=== PATIENT | male | born 1965 | race African-American/Black ===

== ENCOUNTER 2021-07-16 17:50 | Inpatient (IN) | payer BC ==
[~2021-07-16] VITALS: Ht 170.2 cm; Wt 118.3 kg
[2021-07-16 00:30] VITALS: BP 156/91
[2021-07-16] MEDS ORDERED: IV NORMAL SALINE 1000ML BAG 1,000 ML IV ONE (19:00)
[2021-07-16] MEDS ORDERED: DEXAMETHASONE SOD PHOS 4 MG/ML VIAL IVP ONE (19:00)
--- NOTE | 2021-07-16 19:14 | PHYS DOC ---
Past Medical History Past Medical History: Diabetes-Type II, Hypertension Additional Past Medical Histor: HERNIA Past Surgical History: No Surgical History Smoking Status: Never Smoker Alcohol Use: Occasionally Drug Use: None General Adult EDM: Chief Complaint: SHORTNESS OF BREATH HPI: HPI: Patient is a 55-year-old male with past medical history of hypertension and diabetes presenting for shortness of breath, cough, and fever for about a week. He reports he initially felt that he had a head cold and some fatigue that worsened. He now reports productive cough of green/brown/reddish tinted sputum that is worse in the morning and at night. He also reports shortness of breath that is worse when he is up moving around. He has been taking Tylenol for the fevers for the past week with some relief and in his symptoms. He saw his PCP yesterday and they provided him with a Covid test for which he has not gotten the results yet. He denies chest pain, nausea/vomiting, diarrhea, or dysuria. He reports he has not been vaccinated for COVID and has had no known exposures that he knows of. He denies history of blood clot, leg swelling, recent surgery/hospitalization, history of malignancy, or use of hormones. Review of Systems: Review of Systems: Constitutional: Reports fevers and chills Eyes: Denies redness or eye pain HENT: Denies nasal congestion or sore throat Respiratory: Reports cough and shortness of breath Cardiovascular: Denies chest pain or palpitations GI: Denies abdominal pain, nausea, or vomiting : Denies dysuria or hematuria Musculoskeletal: Denies back pain or joint pain Integument: Denies rash or skin lesions Neurologic: Denies focal weakness or sensory changes; reports headache Complete systems were reviewed and found to be within normal limits, except as documented in this note. Heart Score: C/O Chest Pain: N/A Current Medications: Current Medications Medications (Trade) Dose Ordered Sig/Jerome Start Time Stop Time Status Last Admin Dose Admin Dexamethasone Sodium Phosphate (Decadron) 10 mg 1X ONCE 07/16/21 19:00 07/16/21 19:01 DC Sodium Chloride 1,000 ml @ 1,000 mls/hr 1X ONCE 07/16/21 19:00 07/16/21 19:59 Allergies: Allergies: Allergies Coded Allergies Type Severity Reaction Last Updated Verified No Known Drug Allergies 11/15/15 No Physical Exam: PE: Constitutional: Well developed, well nourished, no acute distress HENT: Normocephalic, atraumatic Eyes: Conjunctiva normal, no discharge Neck: Normal range of motion, no tenderness, supple Lungs & Thorax: No respiratory distress, equal chest rise and fall, diminished breath sounds throughout Abdomen: Soft, no tenderness Skin: Warm, dry, no rash Back: No tenderness, no CVA tenderness Extremities: No tenderness, ROM intact, no LE edema Neurologic: Alert and oriented X 3, no focal deficits noted Psychologic: Affect normal, judgment normal EKG: EKG: @1918, sinus tachycardia at [address] segment changes, QRS 82 ms, QT/QTc 318/430 ms Radiology/Procedures: Radiology/Procedures: PROCEDURE: CT ANGIOGRAPHY CHEST EXAMINATION: CTA Chest With IV contrast INDICATION:55 years, Male, shortness of breath, Covid 19 positive, evaluate for pulmonary embolism. COMPARISON: None. TECHNIQUE: Spiral CTA was obtained from the jugular notch through the posterior costophrenic recess. 3-D MIPS, sagittal and coronal reformats were obtained. Exposure: One or more of the following individualized dose reduction techniques were utilized for this examination: 1. Automated exposure control 2. Adjustment of the mA and/or kV according to patient size 3. Use of iterative reconstruction technique. FINDINGS: LUNGS/PLEURA: Central airways are patent. Multifocal bilateral consolidative and groundglass opacities. No pleural effusion or pneumothorax. No suspicious pulmonary nodule. MEDIASTINUM: Prominent mediastinal lymph nodes, likely reactive. The thoracic aorta and pulmonary arteries are normal in caliber. Evaluation for pulmonary embolism is limited due to contrast bolus timing. No evidence of pulmonary embolism to the proximal segmental level. The heart is normal in size. No pericardial effusion. No detectable calcified coronary atherosclerosis. The visualized thyroid and the esophagus are unremarkable. AXILLA/SOFT TISSUE: No supraclavicular or axillary adenopathy. Regional soft tissues are within normal limits. UPPER ABDOMEN: Calcified granuloma in the right hepatic lobe. Small hiatal hernia. BONES: No evidence of acute fractures or aggressive osseous lesions. Multilevel degenerative changes in the thoracic spine. IMPRESSION: 1. Evaluation for pulmonary embolism is limited due to contrast bolus timing. No evidence of pulmonary embolism to the proximal segmental level. 2. Multifocal bilateral consolidative and groundglass opacities, consistent with patient's history of COVID-19 pneumonia. Electronically signed by: Becca Kapadia MD (07/16/2021 10:38 PM) [facility] Course & Med Decision Making: Course & Med Decision Making Pertinent Labs and Imaging studies reviewed. (See chart for details) Patient is a 55-year-old male with past medical history of diabetes and hypertension presenting for shortness of breath, cough, and fever. Patient initially tachycardic and slightly hypoxic at 89% in triage, placed on 2 L O2 with improvement in saturation to 97%. 1 L normal saline given along with IV Dex. EKG showed sinus tachycardia without acute ST segment changes suggestive of ischemia. Rapid Covid positive. Labs ordered and posted to chart . CBC and CMP unremarkable. Troponin negative. CT chest did not show evidence of PE, demonstrated b/l groundglass opacities consistent with COVID pneumonia. Patient requiring admission for further evaluation and treatment. Discussed with Dr. Swan (PCP) who is in agreement with admission. Discussed findings and plan with patient, who acknowledges understanding and agreement. Dr. Swan requested remdesivir be started and the dexamethasone to continue. COVID-19 CRITERIA: The patient was evaluated during the global COVID-19 pandemic, and that diagnosis was suspected/considered upon their initial presentation. Their evaluation, treatment and testing was consistent with current guidelines for patients who present with complaints or symptoms that may be related to COVID-19. Dragon Disclaimer: Dragon Disclaimer: This electronic medical record was generated, in whole or in part, using a voice recognition dictation system. Departure Departure Impression: Primary Impression: Respiratory failure Qualified Codes: J96.01 - Acute respiratory failure with hypoxia Additional Impressions: COVID-19 Hypoxia Disposition: 09 ADMITTED INPATIENT Admitting Physician: Bianca Swan Condition: STABLE Referrals: BIANCA SWAN MD (PCP) COVID-19 Assessment: COVID-19 Patient Risks: Age 65 or older: No Sign of co-morbidity: Yes Exp to person + for COVID: No Exp to PUI: No Travel from affected area: No Lower respiratory symptoms: Yes Fever: Yes Other: Yes PPE Use: Full PPE with N95 mask or PAPR: Yes Critical Care Time Critical care time was 30 minutes which includes time at bedside, spent in discussion of patient's care with specialists and/or family members, with interpretation of laboratory and/or radiological studies and is exclusive of procedures. ARIANNA ARRIAGA DO Jul 16, 2021 19:14
[2021-07-16 19:48] LABS: BASO % 1 % (0-3); EOS % 0 % (0-3); HEMATOCRIT 41.1 % (39.0-53.0); HEMOGLOBIN 13.7 g/dL (13.0-17.5); LYMPH # 0.7 x10^3/uL (1.0-4.8); LYMPH % 11 % (24-48); MEAN CORPUSCULAR HEMOGLOBIN 30 pg (25-35); MEAN CORPUSCULAR HGB CONC 33 g/dL (31-37); MEAN CORPUSCULAR VOLUME 89 fL (79-100); MONO # 0.4 x10^3/uL (0.0-1.1); MONO % 7 % (0-9); NEUT # 4.9 x10^3/uL (1.8-7.7); NEUT % 81 % (31-73); PLATELET COUNT 209 x10^3/uL (140-400); RED BLOOD COUNT 4.61 x10^6/uL (4.30-5.70); RED CELL DISTRIBUTION WIDTH 14.2 % (11.5-14.5); WHITE BLOOD COUNT 6.1 x10^3/uL (4.0-11.0)
[2021-07-16 19:58] LABS: PROTHROMBIN TIME PATIENT 13.4 SEC (11.7-14.0)
[2021-07-16 19:59] LABS: CALCIUM 8.7 mg/dL (8.5-10.1); GFR 94.2
[2021-07-16 20:06] LABS: ALBUMIN 3.2 g/dL (3.4-5.0); ALBUMIN/GLOBULIN RATIO 0.7 (1.0-1.7); MAGNESIUM 2.1 mg/dL (1.8-2.4); TOTAL BILIRUBIN 0.7 mg/dL (0.2-1.0); TOTAL PROTEIN 7.9 g/dL (6.4-8.2)
[2021-07-16 20:23] LABS: CREATINE KINASE 160 U/L (39-308)
[2021-07-16] MEDS ORDERED: CONTRAST GIVEN. MC PRN (20:45)
[2021-07-16] MEDS ORDERED: IOHEXOL 350 MG/ML 100 ML VIAL. IV ONE (20:45)
[2021-07-16] MEDS ORDERED: ACETAMINOPHEN 500 MG TABLET PO ONE (21:30)
[2021-07-16] MEDS ORDERED: AZITHRMYCN 500MG IVPB FOR OMNI 250 ML IV ONE (22:00)
[2021-07-16] MEDS ORDERED: ACETAMINOPHEN 325 MG TABLET. PO PRN (22:00)
[2021-07-16] MEDS ORDERED: cefTRIAXone IV Push 1 GM VIAL. IVP ONE (22:00)
[2021-07-16] MEDS ORDERED: ONDANSETRON PF 4 MG/2 ML VIAL. IVP PRN (22:00)
[2021-07-16] MEDS ORDERED: DEXTROSE 50% 25 GM / 50ML DISP.SYRIN. IV PRN (22:00)
--- NOTE | 2021-07-16 22:41 | RAD ---
EXAMINATION: CTA Chest With IV contrast INDICATION:55 years, Male, shortness of breath, Covid 19 positive, evaluate for pulmonary embolism. COMPARISON: None. TECHNIQUE: Spiral CTA was obtained from the jugular notch through the posterior costophrenic recess. 3-D MIPS, sagittal and coronal reformats were obtained. Exposure: One or more of the following individualized dose reduction techniques were utilized for thi s examination: 1. Automated exposure control 2. Adjustment of the mA and/or kV according to patient size 3. Use of iterative reconstruction technique. FINDINGS: LUNGS/PLEURA: Central airways are patent. Multifocal bilateral consolidative and groundglass opacitie s. No pleural effusion or pneumothorax. No suspicious pulmonary nodule. MEDIASTINUM: Prominent mediastinal lymph nodes, likely reactive. The thoracic aorta and pulmonary art eries are normal in caliber. Evaluation for pulmonary embolism is limited due to contrast bolus timin g. No evidence of pulmonary embolism to the proximal segmental level. The heart is normal in size. No pericardial effusion. No detectable calcified coronary atherosclerosis. The visualized thyroid and t he esophagus are unremarkable. AXILLA/SOFT TISSUE: No supraclavicular or axillary adenopathy. Regional soft tissues are within tsering l limits. UPPER ABDOMEN: Calcified granuloma in the right hepatic lobe. Small hiatal hernia. BONES: No evidence of acute fractures or aggressive osseous lesions. Multilevel degenerative changes in the thoracic spine. IMPRESSION: 1. Evaluation for pulmonary embolism is limited due to contrast bolus timing. No evidence of pulmona ry embolism to the proximal segmental level. 2. Multifocal bilateral consolidative and groundglass opacities, consistent with patient's history o f COVID-19 pneumonia. Electronically signed by: Becca Kapadia MD (07/16/2021 10:38 PM) [facility]
[2021-07-16 22:56] LABS: BILIRUBIN,URINE SMALL (NEG); CLARITY,URINE CLEAR; COLOR,URINE AMBER; NITRITE,URINE NEGATIVE (NEG); PROTEIN,URINE 100 mg/dL (NEG-TRACE)
[2021-07-16] MEDS ORDERED: REMDESIVIR LOAD in IV NORMAL SALINE 250ML TV IV ONE (23:00)
[2021-07-16 23:04] LABS: BACTERIA,URINE 0 /HPF (0-FEW); RBC,URINE 0 /HPF (0-2); WBC,URINE OCC /HPF (0-4)
--- NOTE | 2021-07-17 01:44 | EKG ---
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
[2021-07-17 03:44] VITALS: BP 131/75
[2021-07-17] MEDS ORDERED: METF-658 PO (05:40)
[2021-07-17] MEDS ORDERED: AMLO-186 PO (05:40)
[2021-07-17] MEDS ORDERED: ATOR80TA72 PO (05:40)
[2021-07-17] MEDS ORDERED: LISI10TA16 PO (05:40)
[2021-07-17 07:00] VITALS: BP 151/89
[2021-07-17] MEDS: INSULIN LISPRO 300 UNITS/3 ML VIAL. SQ SCH ×3 (08:00→17:16)
[2021-07-17] MEDS ORDERED: FLU VACC QUAD 21-22 (6MOS+) PF 0.5 ML SYRINGE. VAX IM ONE (09:00)
[2021-07-17] MEDS: DEXAMETHASONE SOD PHOS 4 MG/ML VIAL IVP SCH (09:28)
[2021-07-17 11:00] VITALS: BP 160/91
--- NOTE | 2021-07-17 12:06 | PDOC ---
Provider Note Date of Service: DATE: 07/17/21 TIME: 12:06 Provider Note Pt seen.H&P dictated.#[id number]. Justifications for Admission Other Justification CATARINO SEGOVIA MD Jul 17, 2021 12:06
[2021-07-17] MEDS: ENOXAPARIN 40 MG/0.4 ML SYRINGE. SQ SCH (13:46)
--- NOTE | 2021-07-17 14:02 | HP ---
DATE OF SERVICE: 07/17/2021 ADMIT DATE: 07/16/2021 REASON FOR ADMISSION TO THE HOSPITAL: COVID pneumonia. HISTORY OF PRESENT ILLNESS: The patient is a 55-year-old male with history of obesity, diabetes, hypertension, and hyperlipidemia. He is not vaccinated. 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 The patient has been sick for last 4-5 days, was seen in the office a couple of days ago. COVID test was done, is still pending. He was more short of breath, came to the Emergency Room and requiring 2 liters of oxygen. A CT of the chest shows no pulmonary embolism, but bilateral ground glass opacities. The patient's white count was normal, had a fever of 103, was given broad-spectrum antibiotic, Zithromax and Rocephin, and started on dexamethasone and remdesivir. PAST MEDICAL HISTORY: As mentioned has a history of diabetes, hypertension, hyperlipidemia, obesity. PAST SURGICAL HISTORY: Denies any major surgeries. ALLERGIES: No known allergies. MEDICATIONS AT HOME: The patient is on amlodipine 5 mg daily, lisinopril 10 mg daily, metformin 500 mg daily, atorvastatin 80 mg daily. PERSONAL HISTORY: Occasional smoker. Denies alcohol, denies any street drugs. FAMILY HISTORY: Positive for diabetes, hypertension, heart disease. REVIEW OF SYSTEMS: Complains of cough, fever, shortness of breath. Rest of the 14-systems reviewed and negative. PHYSICAL EXAMINATION: GENERAL: The patient is not in any distress, comfortable. VITAL SIGNS: Temperature at the time of admission was 98, went up to 103, pulse 90, respirations 20. He is on 2 liters, 98% saturation. HEENT: Head is atraumatic. Pupils equal. Oral cavity, congestion posterior pharynx. NECK: Supple. Thyroid not enlarged. JVD not elevated. CHEST: Symmetrical. CARDIOVASCULAR: S1, S2. LUNGS: Crackles at the bases. ABDOMEN: Soft, obese. No mass palpable. EXTERNAL GENITALIA: No [place]. RECTUM: Deferred. EXTREMITIES: No calf tenderness, no edema. NEUROLOGIC: Cranial nerves intact. Power 5/5 in all extremities. LABORATORY DATA: Shows a white count of 6, hemoglobin 13, platelets 209. INR 1.0. Electrolytes show sodium 141, potassium 4.0, chloride 103, bicarbonate 29, BUN 10, creatinine 1.0, glucose 108. LFTs were normal. Urine was negative. Serology: COVID rapid test was positive. CT chest shows no PE, but shows bilateral ground glass opacities at the bases. EKG done, report is pending. FINAL IMPRESSION: 1. COVID pneumonia. 2. Slight hypoxia, on 2 liters oxygen. 3. Diabetes. 4. Hypertension. 5. Hyperlipidemia. 6. Obesity. PLAN: At this time, the patient was started on dexamethasone, remdesivir, oxygen and DVT prophylaxis with Lovenox. The patient was given one dose of Zithromax and Rocephin, but mostly looks like a fever secondary to COVID pneumonia. Continue the present treatment. Continue 5 days of remdesivir and dexamethasone. CHERI/LUCIA DR: Pavel TID: [id number]
[2021-07-17 15:00] VITALS: BP 159/81
[2021-07-17 19:00] VITALS: BP 153/88
[2021-07-17] MEDS ORDERED: metFORMIN XR 500 MG TAB.ER.24H PO SCH (21:00)
[2021-07-17] MEDS: ATORVASTATIN CALCIUM 40 MG TABLET. PO SCH (21:43)
[2021-07-17] MEDS: REMDESIVIR 100mg in NORMAL SALINE 250ML X 4 DAYS IV SCH (21:43)
[2021-07-17] MEDS: LISINOPRIL 10 MG TABLET PO SCH (21:44)
[2021-07-17 23:00] VITALS: BP 150/88
[2021-07-18 03:00] VITALS: BP 136/67
[2021-07-18 07:00] VITALS: BP 135/83
[2021-07-18] MEDS: INSULIN LISPRO 300 UNITS/3 ML VIAL. SQ SCH ×3 (08:00→17:23)
--- NOTE | 2021-07-18 09:47 | PDOC ---
PROGRESS NOTES Date of Service: DATE: 07/18/21 TIME: 09:44 Subjective Subjective feels good Objective Objective Vital Signs Date Time Temp Pulse Resp B/P (MAP) Pulse Ox O2 Delivery O2 Flow Rate FiO2 07/18/21 07:00 98.1 100 24 135/83 (100) 93 Nasal Cannula 3.5 98.1 Intake and Output 07/18/21 07:00 Intake Total 2000 ml Output Total 1200 ml Balance 800 ml Intake Oral 2000 ml Output Urine Total 1200 ml Physical Exam Abdomen: Soft Heart: Regular rate, Normal S1, Normal S2 Extremities: No clubbing General: Alert HEENT: Atraumatic Lungs: Clear to auscultation MUSCULOSKELETAL: No deformity Neck: No JVD Neuro: Normal speech Psych/Mental Status: Mental status NL Skin: No breakdown Diagnosis Problem List Problems Medical Problems: (1) COVID-19 Status: Acute (2) Hypoxia Status: Acute (3) Respiratory failure Status: Acute Assessment Assessment Problems Medical Problems: (1) COVID-19 Status: Acute (2) Hypoxia Status: Acute (3) Respiratory failure Status: Acute FINAL IMPRESSION: 1. COVID pneumonia. 2. Mild hypoxia, on oxygen. 3. Diabetes. 4. Hypertension. 5. Hyperlipidemia. 6. Obesity. PLAN: had to inc oxygen to 4 L from 2L. labs good BS good Day#3 of remdisivr+dexamethasone. DVT prevention with Lovenox. At this time, the patient was started on dexamethasone, remdesivir, oxygen and DVT prophylaxis with Lovenox. The patient was given one dose of Zithromax and Rocephin, but mostly looks like a fever secondary to COVID pneumonia. Continue the present treatment. Continue 5 days of remdesivir and dexamethasone. Plan Plan of Care Problems Medical Problems: (1) COVID-19 Status: Acute (2) Hypoxia Status: Acute (3) Respiratory failure Status: Acute Comment Review of Relevant I have reviewed the following items avila (where applicable) has been applied. Labs Laboratory Tests Test 07/17/21 11:40 07/17/21 16:30 07/18/21 07:53 Glucose (Fingerstick) 166 mg/dL (70-99) 188 mg/dL (70-99) 122 mg/dL (70-99) Microbiology 07/16/21 Blood Culture - Preliminary, Resulted NO GROWTH AFTER 1 DAY Medications Current Medications Amlodipine Besylate (Norvasc) 5 mg HS PO Last administered on 07/17/21at 21:44; Start 07/17/21 at 21:00 Atorvastatin Calcium (Lipitor) 80 mg QHS PO Last administered on 07/17/21at 21:43; Start 07/17/21 at 21:00 Enoxaparin Sodium (Lovenox 40mg Syringe) 40 mg Q24H SQ Last administered on 07/17/21at 13:46; Start 07/17/21 at 12:00 Lisinopril (Prinivil) 10 mg HS PO Last administered on 07/17/21at 21:44; Start 07/17/21 at 21:00 Metformin HCl (Glucophage Xr) 500 mg HS PO ; Start 07/17/21 at 21:00; Status Cancel Metformin HCl (Glucophage Xr) 500 mg HS PO ; Start 07/19/21 at 21:00 Remdesivir 100 mg/ Sodium Chloride 230 ml @ 460 mls/hr Q24H IV Last administered on 07/17/21at 21:43; Start 07/17/21 at 22:00; Stop 07/20/21 at 22:29 Vitals/I & O Vital Sign - Last 24 Hours 07/17/21 07/17/21 07/17/21 07/17/21 11:00 15:00 19:00 20:00 Temp 98.3 98.0 98.1 98.3 98.0 98.1 Pulse 83 83 80 Resp 20 20 20 B/P (MAP) 160/91 (114) 159/81 (107) 153/88 (109) Pulse Ox 95 95 94 O2 Delivery Nasal Cannula Nasal Cannula Nasal Cannula Nasal Cannula O2 Flow Rate 2.0 2.0 2.0 2.0 07/17/21 07/17/21 07/17/21 07/18/21 21:44 21:44 23:00 03:00 Temp 97.8 98.0 97.8 98.0 Pulse 83 83 73 79 Resp 20 20 B/P (MAP) 159/81 159/81 150/88 (108) 136/67 (90) Pulse Ox 95 92 O2 Delivery Nasal Cannula Nasal Cannula O2 Flow Rate 2.0 2.0 07/18/21 07:00 Temp 98.1 98.1 Pulse 100 Resp 24 B/P (MAP) 135/83 (100) Pulse Ox 93 O2 Delivery Nasal Cannula O2 Flow Rate 3.5 Intake and Output 07/17/21 07/17/21 07/18/21 15:00 23:00 07:00 Intake Total 240 ml 540 ml 1220 ml Output Total 400 ml 800 ml Balance -160 ml -260 ml 1220 ml Justifications for Admission Other Justification CATARINO SEGOVIA MD Jul 18, 2021 09:47
[2021-07-18] MEDS: DEXAMETHASONE SOD PHOS 4 MG/ML VIAL IVP SCH (09:52)
[2021-07-18 11:00] VITALS: BP 148/86
[2021-07-18] MEDS: ENOXAPARIN 40 MG/0.4 ML SYRINGE. SQ SCH (12:23)
[2021-07-18 14:56] VITALS: BP 130/80
[2021-07-18 19:00] VITALS: BP 153/89
[2021-07-18] MEDS: ATORVASTATIN CALCIUM 40 MG TABLET. PO SCH (22:01)
[2021-07-18] MEDS: REMDESIVIR 100mg in NORMAL SALINE 250ML X 4 DAYS IV SCH (22:01)
[2021-07-18] MEDS: LISINOPRIL 10 MG TABLET PO SCH (22:02)
[2021-07-18 23:00] VITALS: BP 164/87
[2021-07-19 03:00] VITALS: BP 150/99
[2021-07-19 06:09] LABS: CALCIUM 8.5 mg/dL (8.5-10.1); GFR 94.2; POTASSIUM 3.8 mmol/L (3.5-5.1)
[2021-07-19 06:40] LABS: BASO % 0 % (0-3); EOS % 0 % (0-3); HEMOGLOBIN 12.3 g/dL (13.0-17.5); LYMPH # 0.9 x10^3/uL (1.0-4.8); LYMPH % 11 % (24-48); MEAN CORPUSCULAR HEMOGLOBIN 29 pg (25-35); MEAN CORPUSCULAR HGB CONC 32 g/dL (31-37); MEAN CORPUSCULAR VOLUME 90 fL (79-100); MONO # 0.8 x10^3/uL (0.0-1.1); MONO % 10 % (0-9); NEUT # 6.2 x10^3/uL (1.8-7.7); NEUT % 79 % (31-73); PLATELET COUNT 275 x10^3/uL (140-400); RED BLOOD COUNT 4.24 x10^6/uL (4.30-5.70); RED CELL DISTRIBUTION WIDTH 14.6 % (11.5-14.5); WHITE BLOOD COUNT 7.9 x10^3/uL (4.0-11.0)
[2021-07-19 07:00] VITALS: BP 153/84
[2021-07-19] MEDS: INSULIN LISPRO 300 UNITS/3 ML VIAL. SQ SCH ×3 (08:00→17:00)
--- NOTE | 2021-07-19 08:58 | PDOC ---
PROGRESS NOTES Date of Service: DATE: 07/19/21 TIME: 08:57 Subjective Subjective feels better Objective Objective Vital Signs Date Time Temp Pulse Resp B/P (MAP) Pulse Ox O2 Delivery O2 Flow Rate FiO2 07/19/21 03:00 96.6 64 20 150/99 (116) 98 Room Air 96.6 07/18/21 23:00 2.0 Intake and Output 07/19/21 07:00 Intake Total 1220 ml Output Total 1650 ml Balance -430 ml Intake Oral 1220 ml Output Urine Total 1650 ml Physical Exam Abdomen: Soft Heart: Regular rate, Normal S1, Normal S2 Extremities: No clubbing General: Alert HEENT: Atraumatic Lungs: Clear to auscultation MUSCULOSKELETAL: No deformity Neck: No JVD Neuro: Normal speech Psych/Mental Status: Mental status NL Skin: No breakdown Diagnosis Problem List Problems Medical Problems: (1) COVID-19 Status: Acute (2) Hypoxia Status: Acute (3) Respiratory failure Status: Acute Assessment Assessment Problems Medical Problems: (1) COVID-19 Status: Acute (2) Hypoxia Status: Acute (3) Respiratory failure Status: Acute FINAL IMPRESSION: 1. COVID pneumonia. 2. Mild hypoxia, on oxygen. 3. Diabetes. 4. Hypertension. 5. Hyperlipidemia. 6. Obesity. PLAN:plans to d/c home tomorrow with home oxygen had to inc oxygen to 4 L from 2L. labs good BS good Day#4 of remdisivr+dexamethasone. DVT prevention with Lovenox. CT chest -ve for PE. At this time, the patient was started on dexamethasone, remdesivir, oxygen and DVT prophylaxis with Lovenox. The patient was given one dose of Zithromax and Rocephin, but mostly looks like a fever secondary to COVID pneumonia. Continue the present treatment. Continue 5 days of remdesivir and dexamethasone. Plan Plan of Care Problems Medical Problems: (1) COVID-19 Status: Acute (2) Hypoxia Status: Acute (3) Respiratory failure Status: Acute Comment Review of Relevant I have reviewed the following items avila (where applicable) has been applied. Labs Laboratory Tests Test 07/18/21 12:14 07/18/21 17:05 07/18/21 21:05 07/19/21 05:00 Glucose (Fingerstick) 132 mg/dL (70-99) 163 mg/dL (70-99) 168 mg/dL (70-99) White Blood Count 7.9 x10^3/uL (4.0-11.0) Red Blood Count 4.24 x10^6/uL (4.30-5.70) Hemoglobin 12.3 g/dL (13.0-17.5) Hematocrit 38.0 % (39.0-53.0) Mean Corpuscular Volume 90 fL (79-100) Mean Corpuscular Hemoglobin 29 pg (25-35) Mean Corpuscular Hemoglobin Concent 32 g/dL (31-37) Red Cell Distribution Width 14.6 % (11.5-14.5) Platelet Count 275 x10^3/uL (140-400) Neutrophils (%) (Auto) 79 % (31-73) Lymphocytes (%) (Auto) 11 % (24-48) Monocytes (%) (Auto) 10 % (0-9) Eosinophils (%) (Auto) 0 % (0-3) Basophils (%) (Auto) 0 % (0-3) Neutrophils # (Auto) 6.2 x10^3/uL (1.8-7.7) Lymphocytes # (Auto) 0.9 x10^3/uL (1.0-4.8) Monocytes # (Auto) 0.8 x10^3/uL (0.0-1.1) Eosinophils # (Auto) 0.0 x10^3/uL (0.0-0.7) Basophils # (Auto) 0.0 x10^3/uL (0.0-0.2) Sodium Level 142 mmol/L (136-145) Potassium Level 3.8 mmol/L (3.5-5.1) Chloride Level 107 mmol/L (98-107) Carbon Dioxide Level 29 mmol/L (21-32) Anion Gap 6 (6-14) Blood Urea Nitrogen 16 mg/dL (8-26) Creatinine 1.0 mg/dL (0.7-1.3) Estimated GFR (Cockcroft-Gault) 94.2 Glucose Level 116 mg/dL (70-99) Calcium Level 8.5 mg/dL (8.5-10.1) Microbiology 07/16/21 Blood Culture - Preliminary, Resulted NO GROWTH AFTER 2 DAYS Medications Current Medications Metformin HCl (Glucophage Xr) 500 mg HS PO ; Start 07/19/21 at 21:00 Vitals/I & O Vital Sign - Last 24 Hours 07/18/21 07/18/21 07/18/21 07/18/21 11:00 14:56 19:00 20:00 Temp 97.7 99.3 98.3 97.7 99.3 98.3 Pulse 79 80 72 Resp 20 26 20 B/P (MAP) 148/86 (106) 130/80 (97) 153/89 (110) Pulse Ox 90 94 96 O2 Delivery Nasal Cannula Nasal Cannula Nasal Cannula Nasal Cannula O2 Flow Rate 6.0 3.5 2.0 3.5 07/18/21 07/18/21 07/18/21 07/19/21 22:02 22:02 23:00 03:00 Temp 98.1 96.6 98.1 96.6 Pulse 72 72 70 64 Resp 20 20 B/P (MAP) 153/89 153/89 164/87 (112) 150/99 (116) Pulse Ox 99 98 O2 Delivery Nasal Cannula Room Air O2 Flow Rate 2.0 Intake and Output 07/18/21 07/18/21 07/19/21 15:00 23:00 07:00 Intake Total 520 ml 300 ml 400 ml Output Total 1350 ml 300 ml Balance 520 ml -1050 ml 100 ml Justifications for Admission Other Justification CATARINO SEGOVIA MD Jul 19, 2021 08:58
[2021-07-19] MEDS: DEXAMETHASONE SOD PHOS 4 MG/ML VIAL IVP SCH (09:45)
--- NOTE | 2021-07-19 10:57 | NUR ---
SW following. Discussed with RN, pt from home, 3.5L (does not wear oxygen at home), cardiac diet. COVID-19 positive. Pt will need a 6 minute walk prior to discharge - oxygen will cost $120 through [employer]) as pt is self pay. Med Assist following for self pay status. Possible discharge home tomorrow. SW will continue to follow.
[2021-07-19 11:00] VITALS: BP 156/94
[2021-07-19] MEDS: ENOXAPARIN 40 MG/0.4 ML SYRINGE. SQ SCH (12:37)
[2021-07-19 15:00] VITALS: BP 158/86
[2021-07-19] MEDS: REMDESIVIR 100mg in NORMAL SALINE 250ML X 4 DAYS IV SCH (17:40)
[2021-07-19 19:00] VITALS: BP 144/75
[2021-07-19] MEDS ORDERED: metFORMIN XR 500 MG TAB.ER.24H PO SCH (21:00)
[2021-07-19] MEDS: LISINOPRIL 10 MG TABLET PO SCH (22:08)
[2021-07-19] MEDS: ATORVASTATIN CALCIUM 40 MG TABLET. PO SCH (22:08)
[2021-07-19 23:57] VITALS: BP 141/75
[2021-07-20 03:17] VITALS: BP 147/83
[2021-07-20 07:00] VITALS: BP 160/90
[2021-07-20] MEDS: INSULIN LISPRO 300 UNITS/3 ML VIAL. SQ SCH ×3 (08:00→16:39)
--- NOTE | 2021-07-20 09:00 | PDOC ---
PROGRESS NOTES Date of Service: DATE: 07/20/21 TIME: 08:58 Subjective Subjective feels good ,ready to go home Objective Objective Vital Signs Date Time Temp Pulse Resp B/P (MAP) Pulse Ox O2 Delivery O2 Flow Rate FiO2 07/20/21 07:00 97.9 72 18 160/90 (113) 92 Room Air 97.9 07/19/21 20:00 3.0 Intake and Output 07/20/21 07:00 Intake Total 720 ml Output Total 1550 ml Balance -830 ml Intake Oral 720 ml Output Urine Total 1550 ml # Bowel Movements 2 Physical Exam Abdomen: Soft Heart: Regular rate, Normal S1, Normal S2 Extremities: No clubbing General: Alert HEENT: Atraumatic Lungs: Clear to auscultation MUSCULOSKELETAL: No deformity Neck: No JVD Neuro: Normal speech Psych/Mental Status: Mental status NL Skin: No breakdown Diagnosis Problem List Problems Medical Problems: (1) COVID-19 Status: Acute (2) Hypoxia Status: Acute (3) Respiratory failure Status: Acute Assessment Assessment Problems Medical Problems: (1) COVID-19 Status: Acute (2) Hypoxia Status: Acute (3) Respiratory failure Status: Acute FINAL IMPRESSION: 1. COVID pneumonia. 2. Mild hypoxia, on oxygen. 3. Diabetes. 4. Hypertension. 5. Hyperlipidemia. 6. Obesity. PLAN:plans to d/c home today with home oxygen 6 mts walk today labs good BS good Day#5 of remdisivr+dexamethasone today DVT prevention with Lovenox. CT chest -ve for PE. Plan Plan of Care Problems Medical Problems: (1) COVID-19 Status: Acute (2) Hypoxia Status: Acute (3) Respiratory failure Status: Acute Comment Review of Relevant I have reviewed the following items avila (where applicable) has been applied. Labs Laboratory Tests Test 07/19/21 11:31 07/19/21 16:27 07/19/21 19:35 07/20/21 08:14 Glucose (Fingerstick) 106 mg/dL (70-99) 177 mg/dL (70-99) 180 mg/dL (70-99) 96 mg/dL (70-99) Microbiology 07/16/21 Blood Culture - Preliminary, Resulted NO GROWTH AFTER 3 DAYS Medications Current Medications Metformin HCl (Glucophage Xr) 500 mg HS PO Last administered on 07/19/21at 22:08; Start 07/19/21 at 21:00 Vitals/I & O Vital Sign - Last 24 Hours 07/19/21 07/19/21 07/19/21 07/19/21 11:00 15:00 19:00 20:00 Temp 98.7 98.1 98.2 98.7 98.1 98.2 Pulse 63 70 62 Resp 20 20 18 B/P (MAP) 156/94 (114) 158/86 (110) 144/75 (98) Pulse Ox 97 94 97 O2 Delivery Room Air Room Air Room Air Nasal Cannula O2 Flow Rate 3.0 07/19/21 07/19/21 07/19/21 07/20/21 22:08 22:09 23:57 03:17 Temp 98.0 98.1 98.0 98.1 Pulse 62 62 61 66 Resp 18 18 B/P (MAP) 144/75 144/75 141/75 (97) 147/83 (104) Pulse Ox 96 95 O2 Delivery Room Air Room Air 07/20/21 07:00 Temp 97.9 97.9 Pulse 72 Resp 18 B/P (MAP) 160/90 (113) Pulse Ox 92 O2 Delivery Room Air Intake and Output 07/19/21 07/19/21 07/20/21 15:00 23:00 07:00 Intake Total 480 ml 240 ml Output Total 500 ml 350 ml 700 ml Balance -20 ml -110 ml -700 ml Justifications for Admission Other Justification CATARINO SEGOVIA MD Jul 20, 2021 09:00
[2021-07-20] MEDS ORDERED: DEXA4TAB PO (09:03)
[2021-07-20] MEDS: DEXAMETHASONE SOD PHOS 4 MG/ML VIAL IVP SCH (09:04)
--- NOTE | 2021-07-20 10:42 | NUR ---
SW following. Discussed with RN, pt from home, 2L, cardiac diet. Awaiting 6 minute walk. Pt listed as self pay but reporting he has [employer], group #[id number], ID#[id number]. Registration notified. Awaiting outcome of 6 minute walk. COVID-19 positive. TIM will continue to follow. Addendum: 07/20/21 at 1436 by FRANCES DUMONT 6 minute walk completed. Referral faxed to [facility], awaiting acceptance decision. Pt needing 2L with activity only.
[2021-07-20 11:00] VITALS: BP 155/90
[2021-07-20] MEDS: REMDESIVIR 100mg in NORMAL SALINE 250ML X 4 DAYS IV SCH (12:05)
[2021-07-20] MEDS: ENOXAPARIN 40 MG/0.4 ML SYRINGE. SQ SCH (12:06)
[2021-07-20 15:00] VITALS: BP 155/102
--- NOTE | 2021-07-20 17:30 | NUR ---
Patient escorted out to ER entrance by this RN with home oxygen. IV and telemonitor discontinued.
--- NOTE | 2021-07-25 17:44 | PDOC ---
Provider Note Date of Service: DATE: 07/25/21 TIME: 17:44 Provider Note Discharge summary dictated.##[id number]. Justifications for Admission Other Justification CATARINO SEGOVIA MD Jul 25, 2021 17:44
--- NOTE | 2021-07-25 18:31 | DS ---
DATE OF DISCHARGE: 07/20/2021 REASON FOR ADMISSION TO THE HOSPITAL: COVID pneumonia. CONSULTATIONS: None. PROCEDURES DONE: CT angiogram of the chest. HOSPITAL COURSE: The patient is a 55-year-old male. He works 2 jobs and he has been sick for a couple of days and he was short of breath, was brought to the Emergency Room, slightly hypoxic, 88%, was given 2 liters, improved. CT angiogram negative for PE, but shows ground glass appearance. COVID test was positive. The patient was given remdesivir, dexamethasone and Lovenox for DVT prophylaxis. The patient's condition improved over the next couple of days and the patient did not require any oxygen after he finished 5 days of remdesivir and dexamethasone. The patient was discharged home on oral prednisone for 5 more days. CBC, CMP is unremarkable. Urine was negative. COVID was positive. FINAL DIAGNOSES: 1. COVID pneumonia. 2. Hypertension. 3. Diabetes. DISPOSITION: Home. I will see him back for additional medications. BENJAMÍN DR: Pavel TID: [id number]
== END 2021-07-20 17:30 | disposition home or self-care (01) | DRG 177 ==
LOC: ER 17:50 → 5 NORTH 21:47
PROVIDERS: ADMIT Internal Medicine; ATTEND Internal Medicine
PROC: XW033E5 Introduction of Remdesivir Anti-infective into Peripheral Vein, Percutaneous Approach, New Technology Group 5 (ICD-10-PCS; principal; 2021-07-16)
DX: U07.1 COVID-19 (principal); J12.82 Pneumonia due to coronavirus disease 2019; J96.01 Acute respiratory failure with hypoxia; Z68.41 Body mass index [BMI] 40.0-44.9, adult; E11.9 Type 2 diabetes mellitus without complications; E66.9 Obesity, unspecified; E78.5 Hyperlipidemia, unspecified; I10 Essential (primary) hypertension; Z82.49 Family history of ischemic heart disease and other diseases of the circulatory system; Z83.3 Family history of diabetes mellitus
CPT/HCPCS: 36415; 71275; 80048; 80053; 81001; 82553; 82962; 83605; 83690; 83735; 83880; 84484; 85025; 85610; 85730; 87040; 87426; 90471; 90686; 93005; 94618; 96361; 96365; 96375; J0456; J0696; J1100; J1650; J1815; J7030; J7050; Q9967; 99291-25; G0378